=== PATIENT | female | born 1965 | race African-American/Black ===

== ENCOUNTER 2016-12-04 11:18 | Emergency (ER) | payer MEDICAID, OTHER ==
[~2016-12-04] VITALS: Ht 165.1 cm; Wt 83.0 kg
[~2016-12-04 11:18] MED LIST: CYCLOBENZAPRINE10 M7 PO; GABAPENTIN600 MG PO; NORCO 10/325 MG1 TAB PO; PANTOPRAZOLE SO20 MG PO
[2016-12-04 11:22] VITALS: BP 106/64
--- NOTE | 2016-12-04 13:53 | NUR ---
PT TAKEN TO BED 2
--- NOTE | 2016-12-04 14:14 | NUR ---
PT PRESENTS TO ER W/C/O CHEST PAIN X2 DAYS THAT RADIATES TO HER LEFT SHOULDER AND LEFT ARM. PAIN SCALE OF 6/10. DENIES SOB /N/V.DENIES ANY MEDICAL HX.PT IS AAOX4.NO ACUTE DISTRESS NOTED AT THIS TIME.ALL MONITORS PLACED IN.HOB ELEVATED.NEEDS ATTENDED.SAFETY PRECAUTION INSTITUTED.DR CORREA MADE AWARE.
--- NOTE | 2016-12-04 14:35 | NUR ---
PT IS UNABLE TO VOID AT THIS MOMENT FOR URINE CULTURE.
--- NOTE | 2016-12-04 14:40 | NUR ---
PT AMBULATED TO REST ROOM. NO ACUTE DISTRESS NOTED AT THIS TIME.WILL CONTINUE TO MONITOR PT.
--- NOTE | 2016-12-04 14:50 | NUR ---
URINE DIPSTICK RESULT RELAYED TO DR CORREA
--- NOTE | 2016-12-04 14:59 | NUR ---
PT IS SLEEPING. ALL MONITORS PLACED IN. NO ACUTE DISTRESS NOTED AT THIS TIME.WILL CONTINUE TO MONITOR PT.
--- NOTE | 2016-12-04 15:40 | NUR ---
Patient discharged with v/s stable. Written and verbal after care instructions given and explained.Patient alert, oriented and verbalized understanding of instructions. Ambulatory with steady gait. All questions addressed prior to discharge. ID band removed. Patient advised to follow up with PMD. Rx of FLEXERIL given. Patient educated on indication of medication including possible reaction and side effects. Opportunity to ask questions provided and answered.
[2016-12-04 15:42] VITALS: BP 112/78
== END 2016-12-04 15:40 | disposition home or self-care (01) ==
LOC: MED 11:19
DX: R07.89 Other chest pain (principal)
CPT/HCPCS: 36415; 71010; 80053; 81001; 83880; 84484; 85025; 85610; 85730; 93005; 99285; Q0092